=== PATIENT | female | born 1935 | race Asian ===

== ENCOUNTER 2019-06-25 22:02 | Emergency (ER) | payer MEDICARE ==
[2019-06-26] MEDS ORDERED: IBUPROFEN 800 MG TAB PO ONE (00:12)
[2019-06-26] MEDS ORDERED: CYCLOBENZAPRINE 10 MG TAB PO ONE (00:12)
[2019-06-26] MEDS ORDERED: CYCLOBENZAPRINE 10 MG TAB ONE (00:15)
[2019-06-26] MEDS ORDERED: IBUPROFEN 800 MG TAB ONE (00:16)
--- NOTE | 2019-06-26 02:05 | Cat Scan Report ---
CT HEAD WITHOUT CONTRAST INDICATION : Right-sided head and neck pain. No recent trauma. TECHNIQUE: Axial, coronal and sagittal CT imaging was performed from the skull apex through the skul l base without contrast. All CT scans at this location are performed using CT dose reduction for ALA RA by means of automated exposure control. COMPARISON: None available. FINDINGS: PARENCHYMA: No mass, midline shift, hemorrhage, extraaxial collection or acute territorial infarctio n. Multifocal hypodensities along the periventricular white matter likely represent chronic microvasc ular ischemic changes. VENTRICLES: Symmetric and normal in size. SOFT TISSUES: Soft tissues including the orbits appear normal. BONES: No acute osseous abnormality. SINUSES: No significant abnormality. ADDITIONAL FINDINGS: None. IMPRESSION: 1. No acute abnormality. 2. Additional findings as above. Signer Name: Teddy Pearson MD Signed: 06/26/2019 2:00 AM Workstation Name: [id number]
--- NOTE | 2019-06-26 02:09 | Cat Scan Report ---
CT CERVICAL SPINE WITHOUT CONTRAST INDICATION: Right neck pain. No trauma. COMPARISON: None available. TECHNIQUE: Axial, coronal and sagittal CT imaging of the cervical spine without contrast was performe d. All CT scans at this location are performed using CT dose reduction for ALARA by means of automat ed exposure control. FINDINGS: VERTEBRAE:No acute fracture. Normal alignment. DISC SPACES: Multilevel moderate to severe discogenic degenerative changes are seen and are most sign ificant at C3-C4. FACET JOINTS:Multilevel bilateral facet hypertrophy is noted. CENTRAL CANAL: There is mild central canal stenosis at C5-C6 secondary to a disc osteophyte complex. No significant neural foraminal narrowing. SOFT TISSUES:No acute abnormality. Moderate generalized atherosclerosis is noted. LUNG APICES: No significant abnormality. ADDITIONAL FINDINGS: None IMPRESSION: 1. No acute abnormality of the cervical spine. 2. Moderate to severe cervical spondylosis. Signer Name: Teddy Pearson MD Signed: 06/26/2019 2:04 AM Workstation Name: [id number]
--- NOTE | 2019-06-26 02:59 | Emergency Department Report ---
ED Neck Pain/Injury HPI - General Chief Complaint: Neck Pain/Injury Stated Complaint: NECK/HEAD PAIN Time Seen by Provider: 06/25/19 22:34 Mode of arrival: Stretcher Limitations: Physical Limitation - History of Present Illness Initial Comments: 88-year-old female presents to ED with right-sided neck pain since yesterday. She has not states physical therapist stated therapy on her neck, however patient refutes this. She states physical therapist only worked on her lower body. Denies any manipulation of her neck. She states pain radiates upward to the right side of her head. Patient reports relief with Tylenol. She denies any fever, numbness or weakness in her arms, or pain in her arms. She denies trauma. She denies ear pain. MD Complaint: neck pain -: days(s) (1) Place: home Radiation: head Severity: mild Quality: aching Consistency: intermittent Improves With: medication OTC/prescribe (tylenol) Worsens With: movement of neck Context: unknown Associated Symptoms: headache. denies: fever, numbness, tingling, weakness Treatments Prior to Arrival: Acetaminophen - Related Data Previous Rx's Medication Instructions Recorded Last Taken Type Cyclobenzaprine HCl [Flexeril 5 MG 5 mg PO BID #10 tablet 06/26/19 Unknown Rx TAB] Naproxen [Naprosyn] 500 mg PO BID #20 tablet 06/26/19 Unknown Rx Allergies Allergy/AdvReac Type Severity Reaction Status Date / Time Penicillins AdvReac Anaphylaxis Verified 06/25/19 23:01 ED Review of Systems ROS: Stated complaint: NECK/HEAD PAIN Other details as noted in HPI Comment: All other systems reviewed and negative Constitutional: denies: chills, fever ENT: denies: ear pain Musculoskeletal: as per HPI Neurological: headache. denies: weakness, numbness ED Past Medical Hx - Past Medical History Previous Medical History?: Yes Hx Hypertension: Yes Hx COPD: Yes - Surgical History Past Surgical History?: Yes Additional Surgical History: R AKA - Social History Smoking Status: Former Smoker Substance Use Type: None - Medications Home Medications: Home Medications Medication Instructions Recorded Confirmed Last Taken Type Cyclobenzaprine HCl [Flexeril 5 MG 5 mg PO BID #10 tablet 06/26/19 Unknown Rx TAB] Naproxen [Naprosyn] 500 mg PO BID #20 tablet 12/11/19 Unknown Rx ED Physical Exam - General Limitations: Physical Limitation General appearance: alert, in no apparent distress, obese - Head Head exam: Present: atraumatic, normocephalic - Eye Eye exam: Present: normal appearance, EOMI - ENT ENT exam: Present: mucous membranes moist - Neck Neck exam: Present: normal inspection, tenderness (right lateral neck) - Respiratory Respiratory exam: Present: normal lung sounds bilaterally. Absent: respiratory distress - Cardiovascular Cardiovascular Exam: Present: regular rate, normal rhythm - GI/Abdominal GI/Abdominal exam: Present: soft. Absent: distended, tenderness - Extremities Exam Extremities exam: Present: other (right AKA present) - Neurological Exam Neurological exam: Present: alert, oriented X3 - Psychiatric Psychiatric exam: Present: normal affect, normal mood - Skin Skin exam: Present: warm, dry, intact, normal color ED Course Vital Signs 06/25/19 06/25/19 06/26/19 22:24 22:28 00:16 Temperature 98.9 F 98.9 F Pulse Rate 79 79 95 H Respiratory 17 17 17 Rate Blood Pressure 183/84 Blood Pressure 183/84 180/90 [Right] O2 Sat by Pulse 97 96 95 Oximetry Critical care attestation.: If time is entered above; I have spent that time in minutes in the direct care of this critically ill patient, excluding procedure time. ED Disposition Clinical Impression: Neck pain on right side Disposition: DC-01 TO HOME OR SELFCARE Is pt being admited?: No Condition: Stable Instructions: Cervical Sprain (ED) Prescriptions: Cyclobenzaprine HCl [Flexeril 5 MG TAB] 5 mg PO BID #10 tablet Naproxen [Naprosyn] 500 mg PO BID #20 tablet Referrals: PRIMARY CARE, [Primary Care Provider] - 3-5 Days Time of Disposition: 03:02
[2019-06-26 03:24] VITALS: BP 161/75
== END 2019-06-26 05:29 | disposition home or self-care (01) ==
LOC: ED 22:02
DX: M54.2 Cervicalgia (principal); I10 Essential (primary) hypertension; J44.9 Chronic obstructive pulmonary disease, unspecified; Z98.890 Other specified postprocedural states; Z87.891 Personal history of nicotine dependence; Z79.899 Other long term (current) drug therapy; Z88.0 Allergy status to penicillin
CPT/HCPCS: 70450; 72125